=== PATIENT | female | born 1935 | race Caucasian/White ===

== ENCOUNTER → 2016-05-06 10:24 | Day surgery (SDC) | payer MEDICARE, BC ==
[~2016-05-06 10:24] MED LIST: Acetaminophen TAB* 325 MG PO PRN; Buffered Lidocaine 1% SYR 3ML* 3 ML/SYR SYRINGE INTRADERM ONE; Buffered Lidocaine 1% SYR 3ML* 3 ML/SYR SYRINGE ONE; Cyclopentolate 1% OPTH.SOL* 2 ML BTL ONE; Flurbiprofen 0.03% OPTH.SOL* 2.5 ML BTL ONE; Lidocaine 1% MPF* 2 ML VIAL ONE; Lidocaine 2% EPI 1:200000 MPF* 20 ML VIAL ONE; Midazolam* 1 MG/ML 2 ML VIAL (2 MG) ONE; Neomycin/Polymy/Dex OPTH.SUSP* MAXITROL 0.1% 5 ML ONE; Phenylephrine 2.5% OPTH.SOL* 2 ML BTL ONE; Povidone Iodine 5% OPTH* 30 ML BTL ONE; Proparacaine 0.5% OPHTH.SOL* 15 ML BTL ONE; acetaZOLAMIDE TAB* 250 MG ONE
[2016-05-06 15:31] VITALS: BP 151/73
--- NOTE | 2016-05-06 22:02 | OP ---
DATE OF OPERATION: 05/06/16 [facility] DATE OF : 33 SURGEON: Tommy Sandoval MD PREOPERATIVE DIAGNOSIS: Cataract, left eye. POSTOPERATIVE DIAGNOSIS: Cataract, left eye. OPERATIVE PROCEDURE: Phacoemulsification, left eye with IOL. DESCRIPTION OF PROCEDURE: The patient was brought to the operating room after being given 1/2% Alcaine with epinephrine drops in the preoperative area. The eye was prepped and draped in the usual sterile fashion. Sterile drape and eyelid speculum were placed. Again, topical 1/2% Alcaine with epinephrine was given. A paracentesis incision was made at the 3 o'clock position with the No.75 blade. Clear cornea incision 2.2 x 2.2-mm was created at the 6 o'clock position starting at the anterior limbus using the 2.2-mm keratome. The anterior chamber was irrigated with 0.4 mL of 1% non-preservative intracameral lidocaine and filled with DisCoVisc. A capsulorrhexis was completed using the cystotome and the Utrata forceps. Hydrodissection was performed with balanced salt solution. The lens nucleus was removed with the Phacoemulsification handpiece without incident. Cortex was removed with the irrigation-aspiration handpiece. The capsular bag was re-inflated using DisCoVisc, and an implant [id number] diopter inserted with the shooter. The irrigation-aspiration handpiece was used to remove all residual DisCoVisc. The eye was refilled with balanced salt solution and the wound checked and found to be watertight. Topical Maxitrol drops were given. [id number]/[facility] #: [id number] [facility]
== END | disposition home or self-care (01) ==
LOC: OREAST 10:24
PROVIDERS: ATTEND Specialist
DX: H25.812 Combined forms of age-related cataract, left eye (principal); H43.813 Vitreous degeneration, bilateral; I10 Essential (primary) hypertension
CPT/HCPCS: A9270-GY; J2250; V2632

== ENCOUNTER → 2016-05-13 07:24 | Day surgery (SDC) | payer MEDICARE, BC ==
[~2016-05-13 07:24] MED LIST changes: -acetaZOLAMIDE TAB* 250 MG ONE
[2016-05-13 10:22] VITALS: BP 131/59
--- NOTE | 2016-05-13 11:59 | OP ---
OPERATIVE NOTE: DATE OF OPERATION: 05/13/16 DATE OF : 33 SURGEON: Tommy Sandoval MD PREOPERATIVE DIAGNOSIS: Cataract, right eye. POSTOPERATIVE DIAGNOSIS: Cataract, right eye. OPERATIVE PROCEDURE: Phacoemulsification, right eye with IOL. PROCEDURE: The patient was brought to the operating room after being given 1/2% Alcaine with epinep hrine drops in the preoperative area. The eye was prepped and draped in the usual sterile fashion. Sterile drape and eyelid speculum were placed. Again, topical 1/2% Alcaine with epinephrine was gi [place]. A paracentesis incision was made at the 9 o'clock position with the No.75 blade. Clear cornea incision 2.2 x 2.2-mm was created at the 12 o'clock position starting at the anterior limbus using the 2.2-mm keratome. The anterior chamber was irrigated with 0.4 mL of 1% non-preservative intracam eral lidocaine and filled with DisCoVisc. A capsulorrhexis was completed using the cystotome and th e Utrata forceps. Hydrodissection was performed with balanced salt solution. The lens nucleus was r emoved with the Phacoemulsification handpiece without incident. Cortex was removed with the irrigat ion-aspiration handpiece. The capsular bag was re-inflated using DisCoVisc and an [id number] 20 implant was inserted with the shooter. The pupil was small, so a Malyugin ring was used to dilate the pupi l prior to capsulorrhexis and removed after insertion of the lens. Indication for complex cataract surgery is iris abnormalities requiring a pupil dilation device. The irrigation-aspiration handpiec e was used to remove all residual DisCoVisc. The eye was refilled with balanced salt solution and t he wound checked and found to be watertight. Topical Maxitrol drops were given. [id number]/[facility] #: [id number]
== END | disposition home or self-care (01) ==
LOC: OREAST 07:24
PROVIDERS: ATTEND Specialist
DX: H25.811 Combined forms of age-related cataract, right eye (principal); H43.813 Vitreous degeneration, bilateral; I10 Essential (primary) hypertension; E78.5 Hyperlipidemia, unspecified
CPT/HCPCS: A9270-GY; J2250; V2632

== ENCOUNTER 2017-09-19 05:57 | Emergency (ER) | payer MEDICARE, BC ==
--- NOTE | 2017-09-19 06:54 | ED ---
Yosi Leo Elizabeth, scribed for Alexey Sauer MD on 09/19/17 at 0629 . Lower Extremity - HPI Summary HPI Summary: This patient is an 81 year old F presenting to [facility] with a chief complaint of left back and left leg pain since several weeks ago. The patient notes that the pain got better at one point but has gotten worse in the last 5 days. She denies any injury. The patient rates the pain 9/10 in severity. Symptoms aggravated by lying down. Symptoms alleviated by standing up and ambulating. Patient denies difficulty ambulating, groin pain, numbness and tingling in the feet. She notes that she went to [place] and received an XR several weeks ago which was negative. The patient has been taking ibuprofen for pain management. - History of Current Complaint Chief Complaint: EDExtremityLower Stated Complaint: HIP PAIN Hx Obtained From: Patient Onset of Pain: Prior to Arrival Onset/Duration: Weeks Severity Initially: Mild Severity Currently: Moderate Pain Intensity: 9 Pain Scale Used: 0-10 Numeric Timing: Constant Location: Is Discrete @ - left back and left leg Aggravating Factor(s): Other - lying down Alleviating Factor(s): Other - standing, ambulation - Allergies/Home Medications Allergies/Adverse Reactions: Allergies Allergy/AdvReac Type Severity Reaction Status Date / Time amoxicillin Allergy Headache Verified 09/19/17 06:09 cefaclor [From Ceclor] Allergy Headache Verified 09/19/17 06:09 erythromycin base Allergy Headache Verified 09/19/17 06:09 Sulfa (Sulfonamide Allergy Unknown Verified 09/19/17 06:09 Antibiotics) Reaction Details PMH/Surg Hx/FS Hx/Imm Hx Cardiovascular History: Reports: Hx Hypertension - ON MEDS Denies: Other Cardiovascular Problems/Disorders GI History: Denies: Other GI Disorders Musculoskeletal History: Reports: Hx Arthritis - HANDS Sensory History: Reports: Hx Cataracts - CARLOS, Hx Contacts or Glasses - GLASSES, Hx Hearing Aid - X2, WILL LEAVE HOME DOS Opthamlomology History: Reports: Hx Cataracts - CARLOS, Hx Contacts or Glasses - GLASSES Psychiatric History: Denies: Hx Anxiety - Surgical History Surgery Procedure, Year, and Place: LUMBAR DISC SURGERY, 2006, [facility]CTOMY, 1945, [place]. BREAST BX, 1989, [place], [facility] [place] Hx Anesthesia Reactions: No Infectious Disease History: No Infectious Disease History: Denies: Traveled Outside the [place] in Last 30 Days - Family History Known Family History: Positive: None, Other - patient denies any relevant FHx - Social History Alcohol Use: Weekly Alcohol Amount: 1 PER DAY Substance Use Type: Reports: None Smoking Status (MU): Never Smoked Tobacco Review of Systems Negative: Fever Negative: Epistaxis Negative: Vomiting Positive: Other - left back and left leg pain All Other Systems Reviewed And Are Negative: Yes Physical Exam - Summary Physical Exam Summary: Appearance: Well-appearing, Well-nourished, lying in bed comfortably Skin: Warm, dry, no obvious rash Eyes: sclera anicteric, no conjunctival pallor ENT: mucous membranes moist, pharynx appears normal Neck: Supple, nontender Respiratory: Clear to auscultation, no signs of respiratory distress Cardiovascular: Normal S1, S2. No murmurs. Normal distal pulses in tibial and radial bilaterally. Abdomen: Soft, nontender, normal active bowel sounds present Musculoskeletal: Normal, Strength/ROM Intact. Good strength in back, able to get up on toes and heels. Reflexes at the ankles and knees are 2+ and symmetrical. No clonus. No asymmetry and sensation Neurological: A&Ox3, awake and alert, mentation is normal, speech is fluent and appropriate Psychiatric: affect is normal, does not appear anxious or depressed Triage Information Reviewed: Yes Vital Signs On Initial Exam: Initial Vitals Temp Pulse Resp BP Pulse Ox 97.8 F 82 18 183/115 98 09/19/17 06:02 09/19/17 06:02 09/19/17 06:02 09/19/17 06:02 09/19/17 06:02 Vital Signs Reviewed: Yes Diagnostics - Vital Signs Vital Signs Temp Pulse Resp BP Pulse Ox 09/19/17 06:02 97.8 F 82 18 183/115 98 - Laboratory Lab Statement: Any lab studies that have been ordered have been reviewed, and results considered in the medical decision making process. Lower Extremity Course/Dx - Diagnoses Differential Diagnosis/HQI/PQRI: Positive: Arthritis, Fracture (Closed), Sciatica Provider Diagnoses: Sciatica Discharge - Sign-Out/Discharge Documenting (check all that apply): Discharge/Admit/Transfer - Discharge Plan Condition: Good Disposition: HOME Patient Education Materials: Sciatica (ED) Referrals: Wicho Johnson MD [Primary Care Provider] - - Billing Disposition and Condition Condition: GOOD Disposition: HOME The documentation as recorded by the Yosi hernandez Elizabeth accurately reflects the service I personally performed and the decisions made by me, Alexey Sauer MD.
[2017-09-19 06:58] VITALS: BP 0/0
== END 2017-09-19 06:57 | disposition home or self-care (01) ==
LOC: ED 05:57
DX: M54.32 Sciatica, left side (principal); M79.605 Pain in left leg
CPT/HCPCS: 99281

== ENCOUNTER 2018-12-25 10:48 | Emergency (ER) | payer MEDICARE, BC ==
[2018-12-25 12:54] VITALS: BP 160/84
--- NOTE | 2018-12-25 13:08 | UC ---
Throat Pain/Nasal Saroj HPI - HPI Summary HPI Summary: Noticed a white spot on R inner throat. denies pain , sore throat , linares. - History of Current Complaint Chief Complaint: UCRespiratory Stated Complaint: ST Time Seen by Provider: 12/25/18 12:42 Hx Obtained From: Patient Pain Intensity: 0 Pain Scale Used: 0-10 Numeric Cough: None Associated Signs & Symptoms: Positive: Negative - Allergies/Home Medications Allergies/Adverse Reactions: Allergies Allergy/AdvReac Type Severity Reaction Status Date / Time amoxicillin Allergy Headache Verified 12/25/18 12:54 cefaclor [From Ceclor] Allergy Headache Verified 12/25/18 12:54 erythromycin base Allergy Headache Verified 12/25/18 12:54 Sulfa (Sulfonamide Allergy Unknown Verified 12/25/18 12:54 Antibiotics) Reaction Details PMH/Surg Hx/FS Hx/Imm Hx Previously Healthy: Yes Cardiovascular History: Cardiac Disease, Hypertension - Surgical History Surgical History: Yes Surgery Procedure, Year, and Place: LUMBAR DISC SURGERY, 2005, [facility] APPENDECTOMY, 1945, [facility]. BREAST BX, 1989, [facility], [facility] [place] - Family History Known Family History: Positive: None, Other - patient denies any relevant FHx - Social History Alcohol Use: Occasionally Alcohol Amount: 1 PER DAY Substance Use Type: None Smoking Status (MU): Never Smoked Tobacco Review of Systems All Other Systems Reviewed And Are Negative: Yes Constitutional: Negative: Fever, Chills Skin: Negative: Rash ENT: Positive: Other - white spot on throat. Negative: Sore Throat Respiratory: Negative: Cough Physical Exam Triage Information Reviewed: Yes Appearance: Well-Appearing Vital Signs: Initial Vital Signs Temp 97.6 F 12/25/18 12:51 Pulse 75 12/25/18 12:51 Resp 16 12/25/18 12:51 BP 160/84 12/25/18 12:51 Pulse Ox 99 12/25/18 12:51 Vital Signs Reviewed: Yes Eyes: Positive: Conjunctiva Clear ENT: Positive: Pharynx normal, Uvula midline, Other - white debris/stone in R tonsil. Neck exam: Normal Throat Pain/Nasal Course/Dx - Course Course Of Treatment: Noticed a tonsolith in R tonsil last night. On exam it was noted. No signs of infxn and neg. rapid strep today. We discussed ways to manage this and that it is benign. BLOOD PRESSURE elevated but she will discuss with pcp. - Differential Dx/Diagnosis Differential Diagnosis/HQI/PQRI: Tonsillitis, URI, Other Provider Diagnosis: Tonsillolith Discharge ED - Sign-Out/Discharge Documenting (check all that apply): Patient Departure All imaging exams completed and their final reports reviewed: No Studies - Discharge Plan Condition: Good Disposition: HOME Patient Education Materials: Tonsillitis (ED) Referrals: Wicho Johnson MD [Primary Care Provider] - Additional Instructions: You do not have tonsillitis but i have given you information on this should you develop it. Try gargling with warm salty water. - Billing Disposition and Condition Condition: GOOD Disposition: Home - Attestation Statements Provider Attestation: I was available for consult. This patient was seen by the JUDY. The patient was not presented to , seen by or examined by nv -Funmi Burdick MD
== END 2018-12-25 13:32 | disposition home or self-care (01) ==
LOC: UCEAST 10:48
DX: J35.8 Other chronic diseases of tonsils and adenoids (principal); I10 Essential (primary) hypertension; Z88.2 Allergy status to sulfonamides
CPT/HCPCS: 87651; 99211; G0463